=== PATIENT | female | born 1950 | race Caucasian/White ===

== ENCOUNTER 2021-12-11 12:02 | Emergency (ER) | payer OTHER, SELFPAY ==
[2021-12-11 12:15] VITALS: BP 166/82; PULSE 108; RESP 15; TEMP 37.2; O2SAT 100; BMI 17.4
--- NOTE | 2021-12-11 15:03 | ED.HA ---
HPI - Headache General Chief Complaint: Headache Stated Complaint: Chronic diarrhea abd pain Time Seen by Provider: 12/11/21 15:03 Source: patient Mode of arrival: Ambulatory Limitations: no limitations History of Present Illness HPI Narrative: This is a 71-year-old female with known rheumatoid arthritis on methotrexate and nabumetone for chronic pain, osteoarthritis, patient had COVID infection in May and has since had persistent diarrhea multiple times daily. She states she presents today because she developed right sacral hip pain over the weekend which has been persistent worse when she is lying flat. Nothing else seems to really exacerbated or alleviated other than changing her position. Patient has been afebrile. No chest pain or shortness breath. She occasionally has nausea. She has not had any vomiting. She states that typically it seems to be associated when she eats food and then she will have a small amount of diarrhea sometimes large amounts but sometimes very small amounts. She has had some occasional epigastric pain but not persistent. She has not had any dysuria, urgency or frequency. No black or bloody stools. She presents today after developing right sacroiliac pain over the weekend which is worse with lying flat. No falls or trauma. No radiation of pain. It pain has been fairly persistent but not always present. She has not had similar symptoms in the past but does have known rheumatoid arthritis, has significant osteoarthritis in her knees. Patient has had a hysterectomy. She is allergic to codeine. Occasional alcohol, no illicit, regular tobacco use. She follows with Dr. Macdonald and has had lab work, stool studies, imaging to evaluate her persistent diarrhea. Related Data Previous Rx's Medication Instructions Recorded tramadol 50 mg tablet (Ultram) 50 mg PO Q6H PRN #10 tab 12/11/21 Allergies Allergy/AdvReac Type Severity Reaction Status Date / Time codeine Allergy Verified 12/11/21 12:20 Review of Systems Review of Systems ROS Unobtainable: All systems reviewed & are unremarkable except as noted in HPI and below Patient History Social History Smoking Status: Unknown if ever smoked Smoking Status: Unknown if ever smoked alcohol intake frequency: holidays/special occasions only Substance Use Type: does not use Exam Narrative Exam Narrative: GENERAL: Alert and oriented x three, thin female mild distress HEENT: Head normocephalic, atraumatic, EOMI, pupils reactive, face symmetric, moist mucous membranes NECK: Supple, full range of motion CARDIOVASCULAR: Regular rate and rhythm without murmurs, rubs or gallops. RESPIRATORY: Breath sounds equal bilaterally, no wheezes rales or rhonchi. ABDOMEN: Soft, nontender. Normoactive bowel sounds all 4 quadrants. No guarding or rebound, rigidity, no mass BACK: No cervical, thoracic or lumbar vertebral point tenderness. Patient has normal range of motion. Patient's gait is normal. Muscle strength is 5/5 in lower extremities. Patient pain is not reproducible on exam but she indicates over the right SI joint is where her tenderness is. No skin changes appreciated. : No CVA tenderness EXTREMITIES: Normal range of motion, no clubbing or edema. Neurovascularly intact NEUROLOGICAL: Cranial nerves II through XII grossly intact. Moving all extremities SKIN: Warm, dry, no petechiae, no rashes or lesions. Initial Vital Signs Initial Vital Signs: Vital Signs Temperature 98.9 F 12/11/21 12:15 Pulse Rate 108 H 12/11/21 12:15 Respiratory Rate 15 12/11/21 12:15 Blood Pressure 166/82 H 12/11/21 12:15 Pulse Oximetry 100 12/11/21 12:15 Course Orders Ordered: ED Orders 12/11/21 15:29 XR sacrum coccyx min 2V Stat Vital Signs Vital signs: Vital Signs - 8 hr 12/11/21 12:15 12/11/21 15:47 Temperature 98.9 F Pulse Rate 108 H 94 H Respiratory Rate 15 18 Blood Pressure 166/82 H 144/82 H Pulse Oximetry 100 99 MDM - Headache MDM Narrative Medical decision making narrative: This is a 71-year-old female with known rheumatoid arthritis with chronic diarrhea which she states occurred about 5 weeks after her symptoms COVID improved in May and have been persistent. She has had extensive workup with her primary care physician that she shared with me. Patient has presented today because she has had increased right SI joint pain which is new over the past several days. She is not reproducible with pain on exam. 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 Likely for traumatic or injury or break is unlikely. Patient after discussion defers any lab work for her diarrhea and abdominal discomfort she states this been chronic and she has GI follow-up in 3 weeks. She also defers imaging after discussion. She does request something for discomfort she is chronically on an NSAID so was given a prescription for short-term with tramadol and follow-up with primary care. Discharge Plan Departure Patient Disposition: Home Clinical Impression: SI (sacroiliac) pain Activity Restrictions/Additional Instructions: I do recommend you follow-up with gastroenterology for evaluation and likely colonoscopy for your persistent diarrhea. It sounds like you had a very thorough workup and evaluation with your primary care team. The area that is causing you pain today is called your sacroiliac joint. The individuals can have pain secondary to osteoarthritis or autoimmune disease. I would share this information with her accounts receivable assistant especially if it is persistent. Continue home medications as prescribed. You may take tramadol 1-2 tablets every 6 hours as needed for pain. This medication can make you sleepy do not drive, perform hazardous activities or make any major decisions while taking it. This medication will make you constipated please take a stool softener once to twice daily until stools are soft and regular. In your case you may wish to avoid stool softeners and see how it affects your diarrhea. Prescription sent to [facility] in [place]. Return for fevers, new numbness, tingling or weakness of you r extremities, loss of bowel or bladder control, black or bloody stools, new abdominal, back or flank pain, persistent vomiting or other new or concerning symptoms Prescriptions: New tramadol [Ultram] 50 mg tablet 50 mg PO Q6H PRN (Reason: pain) Qty: 10 0RF Referrals: Toni Macdonald MD [Primary Care Provider] -
--- NOTE | 2021-12-11 15:45 | PC.NURSE ---
pt refused xray, pt states she would like to go and had a question for the dr. dr servin to bedside.
[2021-12-11 15:47] VITALS: BP 144/82; PULSE 94; RESP 18; O2SAT 99
== END 2021-12-11 15:47 | disposition home or self-care (01) ==
PROVIDERS: Emergency Provider Emergency Medicine; PCP Internal Medicine
DX: M25.551 Pain in right hip (principal)
CPT/HCPCS: 99281

== ENCOUNTER 2023-03-01 11:03 | Emergency (ER) | payer OTHER, SELFPAY ==
[2023-03-01 11:17] VITALS: BP 192/88; PULSE 107; RESP 16; TEMP 36.8; O2SAT 99; BMI 17.7
--- NOTE | 2023-03-01 11:25 | DI.RAD.S_ITS ---
PROCEDURE: XR FINGER RT MIN 2V INDICATIONS: dog bite TECHNIQUE: AP hand, 2 views of the 4th finger(s) acquired. COMPARISON: [facility], CR, XR HAND 3+ VIEWS BILATERAL, 05/17/2021, 16:07. FINDINGS: Bones: Degenerative changes of the interphalangeal joints and the thumb metacarpophalangeal joint. The bones are demineralized. No fracture of the 4th finger is seen. There is an irregular appearance of the base of the index finger proximal phalanx, consistent with degenerative changes seen on prior x-ray Soft tissues: No suspicious soft tissue calcifications. IMPRESSION: No acute bony abnormality. Degenerative changes consistent with osteoarthritis. Dictated by: Kevin Wood M.D. on 03/01/2023 at 11:35 Approved by: Kevin Wood M.D. on 03/01/2023 at 11:37
--- NOTE | 2023-03-01 12:15 | ED.ANIMALBIT ---
HPI - Animal Bite General Chief Complaint: Animal Bite Stated Complaint: Dog Bite, Right Hand Time Seen by Provider: 03/01/23 12:15 Source: patient Mode of arrival: Family Vehicle History of Present Illness HPI narrative: Patient is a 72-year-old female history of rheumatoid arthritis presents today with right 4th finger dog bite. She reports yesterday she was trying to help a stray dog who had a collar and tags however it bit her. She kept her finger wrapped she reports some iodine on it but came to the ED today for evaluation. It is slightly tender to touch and still oozing. Related Data Previous Rx's Medication Instructions Recorded tramadol 50 mg tablet (Ultram) 50 mg PO Q6H PRN pain #10 tabs 12/11/21 amoxicillin 875 mg-potassium 1 tab PO BID #20 tabs 03/01/23 clavulanate 125 mg tablet hydrocodone 5 mg-acetaminophen 325 1 tab PO Q6H PRN pain #10 tabs 03/01/23 mg tablet Allergies Allergy/AdvReac Type Severity Reaction Status Date / Time codeine Allergy Verified 03/01/23 11:17 Review of Systems Review of Systems ROS Unobtainable: All systems reviewed & are unremarkable except as noted in HPI and below Patient History Social History Smoking Status: Unknown if ever smoked Smoking Status: Unknown if ever smoked alcohol intake frequency: holidays/special occasions only Substance Use Type: does not use Exam Initial Vital Signs Initial Vital Signs: Vital Signs Temperature 98.2 F 03/01/23 11:17 Pulse Rate 107 H 03/01/23 11:17 Respiratory Rate 16 03/01/23 11:17 Blood Pressure 192/88 H 03/01/23 11:17 Pulse Oximetry 99 03/01/23 11:17 Oxygen Delivery Method Room Air 03/01/23 11:17 GENERAL: Well-appearing, well-nourished and in no acute distress. CARDIOVASCULAR: peripheral pulses in tact, cap refill <2 sec RESPIRATORY: No respiratory distress, speaks in full sentences without difficulty EXTREMITIES: Normal range of motion, no clubbing or edema. Neurovascularly intact NEUROLOGICAL: Cranial nerves II through XII grossly intact. Normal gait and speech. SKIN: Right 4th finger abrasion/laceration without good skin approximation, site is at PIP, no significant swelling redness still able to flex and extend fingers Course Orders Ordered: ED Orders 03/01/23 11:25 XR finger RT min 2V Stat Discontinued Medications Bacitracin (Bacitracin Oint 0.9 Gm Pckt) 1 applic TOP NOW ONE Stop: 03/01/23 12:21 Last Admin: 03/01/23 12:28 Dose: 1 applic Documented By: JUDY Diphtheria/Tetanus/Acell Pertussis (Tet,Diph,Pertuss(Acell),Vac/Pf 0.5 Ml Syringe) 0.5 ml IM .ONCE ONE Stop: 03/01/23 11:27 Last Admin: 03/01/23 12:22 Dose: Not Given Documented By: JUDY Tetanus/Diphtheria Toxoids (Tetanus Diphtheria Toxoids 0.5 Ml Vial) 0.5 ml IM .ONCE ONE Stop: 03/01/23 12:24 Last Admin: 03/01/23 12:33 Dose: 0.5 ml Documented By: JUDY Vital Signs Vital signs: Vital Signs - 8 hr 03/01/23 11:17 Temperature 98.2 F Pulse Rate 107 H Respiratory Rate 16 Blood Pressure 192/88 H Pulse Oximetry 99 Oxygen Delivery Method Room Air MDM - Animal Bite Imaging Data Extremity x-ray #1: My Impression: No foreign body no fracture Radiologist's Impression: PROCEDURE:? XR FINGER RT MIN 2V ? INDICATIONS:? dog bite ? TECHNIQUE:? AP hand, 2 views of the 4th finger(s) acquired.? ? COMPARISON:? [facility], CR, XR HAND 3+ VIEWS BILATERAL, 05/17/2021, 16:07. ? FINDINGS:? ? Bones:? Degenerative changes of the interphalangeal joints and the thumb metacarpophalangeal joint.? The bones are demineralized.? No fracture of the 4th finger is seen.? There is an irregular appearance of the base of the index finger proximal phalanx, consistent with degenerative changes seen on prior x-ray ? Soft tissues:? No suspicious soft tissue calcifications.? ? IMPRESSION:? No acute bony abnormality.? Degenerative changes consistent with osteoarthritis. ? ? Dictated by: Kevin Wood M.D. on 03/01/2023 at 11:35 ? ? [facility] Narrative Medical decision making narrative: At this time patient patient presents with dog bite the yesterday. No need for closure. Does not appear that there is tendon injury she is able to and extend. No evidence flexor tendinitis. X-ray reviewed by my fell see any evidence foreign body or fracture. At this time she is given pain medication and antibiotics septic close follow-up. She is risk for worsening infection secondary to rheumatoid arthritis on methotrexate. Discharge Plan Departure Patient Disposition: Home Clinical Impression: Dog bite Instructions: DI for Dog Bite Activity Restrictions/Additional Instructions: *You have been diagnosed with dog bite *What to do: At this time keep finger clean and dry with soap and water. Apply antibiotic ointment 1-2 times daily. Recommend keeping finger wrapped while out in about an unwrap it while at home *Continue to take medications as directed--> [facility] Augmentin 875 mg twice daily for 7 days Motrin 600 mg every 6 hours if needed for [id number]-[id number] pain Uledi 1 tablet every 6 hours needed for severe pain *Follow up with your primary care provider in 2-3 days or call [phone] *Return to ER if you should have increased redness swelling pain inability to move finger or any new, worsening or concerning symptoms CONTROLLED SUBSTANCE DISCHARGE (Narcotoic/benzodiazepine/Flexeril/Phenergan) 1. You have been prescribed narcotic medications, it does have acetaminophen/Tylenol/paracetamol in it, DO NOT TAKE MORE THAN 4,00mg in 24 hours of Tylenol. TRAMADOL DOES NOT CONTAIN TYLENOL 2. Please understand that we cannot provide further refills of narcotics, benzodiazepines or controlled substances through the ED and her pain management will need to be through your provider. 3. While on these medications you cannot drive or operate heavy machinery. 4. You cannot sign legal documents or perform any duties such as this. 5. As long as you're taking opiate pain medications he should also be taking a stool softener such as Colace, Dulcolax, MiraLAX or prune juice, to help avoid constipation. Prescriptions: New hydrocodone-acetaminophen 5-325 mg tablet 1 tab PO Q6H PRN (Reason: pain) Qty: 10 0RF amoxicillin-pot clavulanate 875-125 mg tablet 1 tab PO BID Qty: 20 0RF No Action tramadol [Ultram] 50 mg tablet 50 mg PO Q6H PRN (Reason: pain) Qty: 10 0RF Referrals: Lissette Pulido MD [Primary Care Provider] - Stand Alone Forms: Patient Portal/API
[2023-03-01] MEDS: BACITRACIN OINT 0.9 GM PCKT 1 APPLIC TOP (12:28)
[2023-03-01] MEDS: TETANUS DIPHTHERIA TOXOIDS 0.5 ML VIAL IM (12:33)
== END 2023-03-01 12:42 | disposition home or self-care (01) ==
PROVIDERS: Emergency Provider Emergency Medicine; PCP Internal Medicine
DX: S60.470A Other superficial bite of right index finger, initial encounter (principal); Z23 Encounter for immunization; W54.0XXA Bitten by dog, initial encounter
CPT/HCPCS: 73140; 90471; 90714; 99283; 99284; 90715

== ENCOUNTER 2023-07-10 11:33 | Emergency (ER) | payer OTHER, SELFPAY ==
[2023-07-10] VITALS (14 sets, daily range): BP systolic 102–168; BP diastolic 62–87; PULSE 87–167; RESP 12–23; TEMP 36.7; O2SAT 98; BMI 17.7
--- NOTE | 2023-07-10 11:48 | ED_ITS ---
HPI - Arrhythmia/Palpitations General Chief Complaint: Arrhythmia/Palpitations Stated Complaint: SVT 1pm issues Time Seen by Provider: 07/10/23 11:40 Source: patient Mode of arrival: Ambulatory History of Present Illness HPI narrative: Patient is a 72-year-old female. She is here for evaluation of palpitations. She states that her current symptoms have been going on since 1100 hours last night. She had similar symptoms on Friday this week. She has had history of SVT in the past. Was on propranolol for a while. She stopped taking that approximately 6-8 years ago. She is noticed progressive worsening of her palpitations over the past couple years. She has seen her primary doctor. She has worn a ZIO patch. She is scheduled to see Cardiology and electrophysiology. She did take her metoprolol last evening which did not improve her symptoms. States she feels very run down and short of breath with the symptoms. Related Data Previous Rx's Medication Instructions Recorded tramadol 50 mg tablet (Ultram) 50 mg PO Q6H PRN pain #10 tabs 12/11/21 amoxicillin 875 mg-potassium 1 tab PO BID #20 tabs 03/01/23 clavulanate 125 mg tablet hydrocodone 5 mg-acetaminophen 325 1 tab PO Q6H PRN pain #10 tabs 03/01/23 mg tablet Allergies Allergy/AdvReac Type Severity Reaction Status Date / Time codeine Allergy Verified 03/01/23 11:17 Review of Systems Constitutional Constitutional: Reports system reviewed and no additional complaints, except as documented Cardiovascular Cardiovascular: Reports system reviewed and no additional complaints, except as documented Respiratory Respiratory: Reports system reviewed and no additional complaints, except as documented Gastrointestinal Gastrointestinal: Reports system reviewed and no additional complaints, except as documented Hematologic/Lymphatic On Anticoagulants: No Patient History Social History Smoking Status: Unknown if ever smoked Smoking Status: Unknown if ever smoked alcohol intake frequency: holidays/special occasions only Substance Use Type: does not use Exam Initial Vital Signs Initial Vital Signs: Vital Signs Pulse Rate 166 H 07/10/23 11:42 Respiratory Rate 13 07/10/23 11:42 HENMT Head: normal to inspection and normocephalic Resp Effort & Inspection: normal respiratory effort Auscultation: clear to auscultation bilaterally Cardio Rate: tachycardic Rhythm: regular rhythm GI Inspection: normal to inspection and non-distended Skin General: no rashes or lesions noted Neuro General: patient alert, patient awake and moves all extremities Extrem General: No edema Course Orders Ordered: ED Orders 07/10/23 11:49 EKG-12 Lead Stat 07/10/23 11:57 EKG-12 Lead Stat 07/10/23 12:20 Complete Blood Count AUTO DIFF Stat Comprehensive Metabolic Panel Stat Lipase Stat Magnesium Stat Sodium Chloride (Normal Saline 0.9%) 1,000 mls @ 125 mls/hr IV CONT YAMILA Last Admin: 07/10/23 11:55 Dose: 125 mls/hr Documented By: ANDERS Discontinued Medications Adenosine (Adenosine 6 Mg/2 Ml Vial) 6 mg IV NOW ONE Stop: 07/10/23 11:43 Last Admin: 07/10/23 11:54 Dose: 6 mg Documented By: ANDERS Vital Signs Vital signs: Vital Signs - 8 hr 07/10/23 11:42 07/10/23 11:44 07/10/23 11:49 Temperature 98.1 F Pulse Rate 166 H 167 H Respiratory Rate 13 20 Blood Pressure 102/68 118/83 Pulse Oximetry 98 Oxygen Delivery Method Room Air 07/10/23 11:49 07/10/23 11:50 07/10/23 11:50 Temperature Pulse Rate 164 H 163 H Respiratory Rate 20 23 Blood Pressure 143/86 H Pulse Oximetry Oxygen Delivery Method 07/10/23 11:55 07/10/23 11:55 07/10/23 12:00 Temperature Pulse Rate 103 H Respiratory Rate 13 Blood Pressure 147/78 H 152/87 H Pulse Oximetry Oxygen Delivery Method 07/10/23 12:00 07/10/23 12:05 07/10/23 12:05 Temperature Pulse Rate 96 H 92 H Respiratory Rate 17 20 Blood Pressure 148/73 H Pulse Oximetry Oxygen Delivery Method 07/10/23 12:10 07/10/23 12:10 07/10/23 12:15 Temperature Pulse Rate 90 Respiratory Rate 15 Blood Pressure 130/65 127/71 Pulse Oximetry Oxygen Delivery Method 07/10/23 12:15 07/10/23 12:29 07/10/23 12:29 Temperature Pulse Rate 91 H 94 H Respiratory Rate 19 13 Blood Pressure 138/62 Pulse Oximetry Oxygen Delivery Method 07/10/23 12:30 07/10/23 12:30 11/16/23 12:35 Temperature Pulse Rate 88 Respiratory Rate 13 Blood Pressure 117/63 131/76 Pulse Oximetry Oxygen Delivery Method 07/10/23 12:35 07/10/23 12:40 07/10/23 12:40 Temperature Pulse Rate 87 91 H Respiratory Rate 13 14 Blood Pressure 130/82 Pulse Oximetry Oxygen Delivery Method MDM - Arrhythmia/Palpitations Lab Data 07/10/23 12:20 07/10/23 12:20 Labs: Lab Results 07/10/23 Range/Units 12:20 WBC 2.6 L (4.5-11.0) X10^3/uL RBC 3.21 L (4.0-5.2) X10^6/uL Hgb 10.3 L (12.0-16.0) g/dL Hct 30.7 L (36-46) % MCV 95.9 (80-100) fL MCH 32.1 (26-34) PG MCHC 33.5 (30-36) % RDW 14.7 (11.6-14.8) % Plt Count 211 (150-400) X10^3/uL Neut % (Auto) 69.3 (50-75) % Lymph % (Auto) 16.9 L (25-40) % [place] % (Auto) 12.5 (3-14) % Eos % (Auto) 0.7 L (2-4) % Baso % (Auto) 0.6 (0-2) % Neut # (Auto) 1800 (7724-9954) /uL Lymph # (Auto) 400 L (7121-8753) /uL [place] # (Auto) 300 (0-900) /uL Eos # (Auto) 0 (0-450) /uL Baso # (Auto) 0 (0-100) /uL Sodium 135 L (137-145) mmol/L Potassium 3.8 (3.4-5.1) mmol/L Chloride 107 (98-107) mmol/L Carbon Dioxide 23 (22-32) mmol/L BUN 26 H (7-17) mg/dL Creatinine 0.81 (0.52-1.04) mg/dL Estimated GFR > 60 (>60) mL/min BUN/Creatinine Ratio 32.1 H (6-22) Glucose 144 H (80-110) mg/dL Calcium 8.7 (8.4-10.2) mg/dL Magnesium 1.9 (1.6-2.3) mg/dL Total Bilirubin 0.7 (0.2-1.3) mg/dL AST 50 H (14-36) IU/L ALT 28 (<35) IU/L Alkaline Phosphatase 66 (38-126) U/L Total Protein 6.0 L (6.3-8.2) g/dL Albumin 3.3 L (3.5-5.0) g/dL Globulin 2.7 (1.7-4.1) g/dL Albumin/Globulin Ratio 1.2 (1.0-2.8) Lipase 127 (23-300) U/L ECG Data Interpretation: Presentation EKG SVT Rate of 165 Normal axis QRS [address] T wave changes Post chemical cardioversion Sinus rhythm Ventricular rate 93 Normal QRS QTC [address] T wave changes MDM Narrative Medical decision making narrative: Patient arrived in a narrow complex tachycardia. Unremarkable blood pressure. Patient was converted to a sinus rhythm with a heart rate in the 70s with 6 mg of adenosine. Patient states she feels much better. Labs are unremarkable. She does have metoprolol at home. Will have her take 25 mg of metoprolol twice a day with instructions she can take an extra dose if she feels like the symptoms are reoccurring. She is already established with Cardiology and have her follow-up with them. She was given return precautions Discharge Plan Departure Patient Disposition: Home Clinical Impression: Supraventricular tachycardia Instructions: Arrhythmias Activity Restrictions/Additional Instructions: I do recommend that you start taking the metoprolol 25 mg twice a day. You can take an extra dose of the metoprolol if you have the return of symptoms. Recommend you keep all of your scheduled appointments with Cardiology. Return to the emergency department for new or worsening symptoms. Prescriptions: No Action hydrocodone-acetaminophen 5-325 mg tablet 1 tab PO Q6H PRN (Reason: pain) Qty: 10 0RF amoxicillin-pot clavulanate 875-125 mg tablet 1 tab PO BID Qty: 20 0RF tramadol [Ultram] 50 mg tablet 50 mg PO Q6H PRN (Reason: pain) Qty: 10 0RF Referrals: Lissette Pulido MD [Primary Care Provider] - Stand Alone Forms: Patient Portal/API
[2023-07-10] MEDS: ADENOSINE 6 MG/2 ML VIAL IV (11:54)
[2023-07-10] MEDS: SODIUM CHLORIDE 0.9% 1,000 ML 125 ML IV (11:55)
--- NOTE | 2023-07-10 11:56 | PC.NURSE ---
Patient was given adenosine and 6mg and then her rate was converted to 96 bpm. She tolerated the medication well.
[2023-07-10 12:34] LABS: Add Manual Diff / Slide Review NO; Basophils Absolute Auto 0 /uL (0-100); Basophils Percent Auto 0.6 % (0-2); Eosinophils Absolute Auto 0 /uL (0-450); Eosinophils Percent Auto 0.7 % (2-4); Hematocrit 30.7 % (36-46); Hemoglobin 10.3 g/dL (12.0-16.0); Lymphocytes Absolute Auto 400 /uL (1100-4500); Lymphocytes Percent Auto 16.9 % (25-40); Mean Corpuscular HGB Conc 33.5 % (30-36); Mean Corpuscular Hemoglobin 32.1 PG (26-34); Mean Corpuscular Volume 95.9 fL (80-100); Monocytes Absolute Auto 300 /uL (0-900); Monocytes Percent Auto 12.5 % (3-14); Neutrophils Absolute Auto 1800 /uL (1500-7000); Neutrophils Percent Auto 69.3 % (50-75); Platelet Count 211 X10^3/uL (150-400); Red Blood Cell Count 3.21 X10^6/uL (4.0-5.2); Red Cell Distribution Width 14.7 % (11.6-14.8); White Blood Cell Count 2.6 X10^3/uL (4.5-11.0)
[2023-07-10 12:51] LABS: Alanine Aminotransferase 28 IU/L (<35); Albumin 3.3 g/dL (3.5-5.0); Albumin Globulin Ratio 1.2 (1.0-2.8); Alkaline Phosphatase 66 U/L (38-126); Aspartate Aminotransferase 50 IU/L (14-36); BUN Creatinine Ratio 32.1 (6-22); Bilirubin Total 0.7 mg/dL (0.2-1.3); Blood Urea Nitrogen 26 mg/dL (7-17); Calcium 8.7 mg/dL (8.4-10.2); Carbon Dioxide 23 mmol/L (22-32); Chloride 107 mmol/L (98-107); Estimated Glomerular Filt Rate > 60 mL/min (>60); Globulin 2.7 g/dL (1.7-4.1); Glucose 144 mg/dL (80-110); HEMOLYSIS < 15 (0-50); Lipase 127 U/L (23-300); Magnesium 1.9 mg/dL (1.6-2.3); Potassium 3.8 mmol/L (3.4-5.1); Sodium 135 mmol/L (137-145)
== END 2023-07-10 14:15 | disposition home or self-care (01) ==
PROVIDERS: Emergency Provider Emergency Medicine; PCP Internal Medicine
DX: I47.10 Supraventricular tachycardia, unspecified (principal)
CPT/HCPCS: 36415; 80053; 83690; 83735; 85025; 93005; 93010; 96374; 99284; J0153

== ENCOUNTER → 2024-06-14 10:42 | Outpatient (CLI) | payer OTHER, SELFPAY ==
--- NOTE | 2024-06-14 | DI.RAD.S_ITS ---
PROCEDURE: XR DEXA AXIAL SKELETON INDICATIONS: Asymptomatic menopausal state COMPARISON: None. FINDINGS: Lumbar Spine: Bone mineral density 0.758 g/cm2, T score -2.6. Left Hip: Bone mineral density 0.658 g/cm2, T score -2.3. Left Femoral Neck: Bone mineral density 0.526 g/cm2, T score -2.9. Right Hip: Bone mineral density 0.622 g/cm2, T score -2.6. Right Femoral Neck: Bone mineral density 0.542 g/cm2, T score -2.8. Fracture Risk Calculation (when applicable): 10-year fracture risk of a major osteoporotic fracture 20 percent and of a hip fracture 7.9 percent. (T score greater or equal to -1.0 to: NORMAL) (T score from -1.1 to -2.4: OSTEOPENIA) (T score less than or equal to -2.5: OSTEOPOROSIS) IMPRESSION: Osteoporosis by WHO classification. Follow-up guidelines as follows: Osteoporosis: Consider a repeat DEXA and Vertebral Fracture Assessment (VFA) exam in 2 years or sooner if medically necessary, to reassess this patient's status. Osteopenia: Consider a repeat DEXA in 2-3 years to reassess this patient's status, or if there is a new clinical indication. Normal: Consider a repeat DEXA in 5 years or sooner, or if there is a new clinical indication. All treatment decisions require clinical judgment and consideration of individual patient factors, including patient preferences, comorbidities, previous drug use, risk factors not captured in the FRAX model (e.g., frailty, falls, vitamin D deficiency, increased bone turnover, interval significant decline in bone density ) and possible under- or over-estimation of fracture risk by FRAX. In addition, the NOF Guide recommends that FDA-approved medical therapies be considered in postmenopausal women and men age >= 50 years with a: * Hip or vertebral (clinical or morphometric) fracture * T-score of <=-2.5 at the spine or hip * Ten-year fracture probability by FRAX of >= 3% for hip fracture or >=20% for major osteoporotic fracture. People with diagnosed cases of osteoporosis or at high risk for fracture should have regular bone mineral density tests. For patients eligible for Medicare, routine testing is allowed once every 2 years. The testing frequency can be increased to one year for patients who have rapidly progressing disease, those who are receiving or discontinuing medical therapy to restore bone mass, or have additional risk factors. Dictated by: Shaji Romero M.D. on 06/14/2024 at 12:31 Approved by: Shaji Romero M.D. on 06/14/2024 at 12:32
== END ==
PROVIDERS: PCP Internal Medicine; Referring Provider Internal Medicine; Visit Provider Internal Medicine
DX: Z78.0 Asymptomatic menopausal state (principal); M81.0 Age-related osteoporosis without current pathological fracture
CPT/HCPCS: 77080

== ENCOUNTER → 2025-06-07 13:36 | Outpatient (CLI) | payer OTHER, SELFPAY ==
[2025-06-07 14:35] LABS: Add Manual Diff / Slide Review NO; Hematocrit 37.0 % (36-46); Hemoglobin 12.5 g/dL (12.0-16.0); Lymphocytes Absolute Auto 700 /uL (1100-4500); Mean Corpuscular HGB Conc 33.7 % (30-36); Mean Corpuscular Hemoglobin 30.3 PG (26-34); Mean Corpuscular Volume 89.9 fL (80-100); Platelet Count 224 X10^3/uL (150-400)
[2025-06-07 14:55] LABS: Alanine Aminotransferase 17 IU/L (<35); Albumin 4.3 g/dL (3.5-5.0); Albumin Globulin Ratio 1.4 (1.0-2.8); Alkaline Phosphatase 93 U/L (38-126); Blood Urea Nitrogen 24 mg/dL (7-17); Calcium 9.4 mg/dL (8.4-10.2); Carbon Dioxide 27 mmol/L (22-32); Chloride 98 mmol/L (98-107); Estimated Glomerular Filt Rate > 60 mL/min (>60); Globulin 3.1 g/dL (1.7-4.1); Glucose 119 mg/dL (70-99); HEMOLYSIS < 15 (0-50); Potassium 4.9 mmol/L (3.4-5.1); Sodium 134 mmol/L (137-145); Total Protein 7.4 g/dL (6.3-8.2)
== END ==
PROVIDERS: PCP Internal Medicine; Referring Provider Specialist/Technologist Athletic Trainer; Visit Provider Specialist/Technologist Athletic Trainer
DX: M05.79 Rheumatoid arthritis with rheumatoid factor of multiple sites without organ or systems involvement (principal); Z51.81 Encounter for therapeutic drug level monitoring
CPT/HCPCS: 36415; 80053; 85025; 85651; 86140

== ENCOUNTER → 2025-07-06 14:47 | Outpatient (CLI) | payer OTHER, SELFPAY ==
--- NOTE | 2025-07-06 14:49 | DI.RAD.S_ITS ---
PROCEDURE: XR DEXA AXIAL SKELETON
== END ==
LOC: RAD 14:48
PROVIDERS: PCP Internal Medicine; Referring Provider Internal Medicine; Visit Provider Internal Medicine
DX: M81.0 Age-related osteoporosis without current pathological fracture (principal)
CPT/HCPCS: 77080